=== PATIENT | female | born 1965 | race Caucasian/White ===

== ENCOUNTER 2017-06-17 23:53 | Emergency (ER) | payer BC, OTHER ==
--- NOTE | 2017-06-18 00:05 | EDM.PDOC ---
ED HPI GENERAL MEDICAL PROBLEM - General Chief Complaint: Upper Extremity Injury/Pain Stated Complaint: FALL VIA [place] Time Seen by Provider: 06/17/17 23:55 Source of Information: Reports: Patient, EMS History Limitations: Reports: No Limitations - History of Present Illness INITIAL COMMENTS - FREE TEXT/NARRATIVE: 51 yo female fell off a bar with injury to the left elbow. Has no numbness to that hand. EMS transported and gave fentanyl 100 mcg IV before arrival. No other areas of pain reported. Onset: Today Onset Date: 06/18/17 Onset Time: 23:00 Duration: Minutes:, Constant Location: Reports: Upper Extremity, Left Quality: Reports: Ache Severity: Moderate Improves with: Reports: Rest Worsens with: Reports: Movement Context: Reports: Trauma Associated Symptoms: Reports: No Other Symptoms Treatments [employer]: Reports: Other Medication(s) (fentanyl 100 mcg IV) Left Arm Pain Score (Numeric/FACES): 10 - Related Data Allergies Allergy/AdvReac Type Severity Reaction Status Date / Time amoxicillin Allergy Airway Verified 06/18/17 00:00 Tightness Home Meds: Home Meds Cyclobenzaprine HCl [Cyclobenzaprine HCl] 10 mg PO ASDIRECTED PRN 06/18/17 [ History] methylPREDNISolone [Medrol] 06/18/17 [History] Review of Systems - Review of Systems Review Of Systems: See Below Constitutional: Reports: No Symptoms Musculoskeletal: Reports: Arm Pain (left), Joint Pain (elbow, left). Denies: Shoulder Pain, Hand Pain, Leg Pain Skin: Reports: No Symptoms Neurological: Reports: No Symptoms ED EXAM, GENERAL - Physical Exam Exam: See Below Exam Limited By: No Limitations General Appearance: Alert, WD/WN, No Apparent Distress Eye Exam: Bilateral Eye: Normal Inspection Ears: Normal External Exam, Normal Canal, Hearing Grossly Normal Ear Exam: Bilateral Ear: Auricle Normal, Canal Normal Nose: Normal Inspection, Normal Mucosa Throat/Mouth: Normal Inspection, Normal Lips, Normal Teeth, Normal Oropharynx, Normal Voice, No Airway Compromise Head: Atraumatic, Normocephalic Neck: Normal Inspection Respiratory/Chest: No Respiratory Distress, Lungs Clear, Normal Breath Sounds Cardiovascular: Regular Rate, Rhythm Extremities: Arm Pain (L elbow with deformity), Limited Range of Motion. No: Normal Range of Motion, Joint Swelling, Redness Neurological: Alert, Oriented, CN II-XII Intact, Normal Cognition Psychiatric: Normal Affect, Normal Mood Skin Exam: Warm, Dry, Intact, Normal Color, No Rash Course - Vital Signs Last Recorded V/S: Last Vital Signs Temp 36.2 C 06/18/17 01:06 Pulse 76 06/18/17 01:06 Resp 14 06/18/17 01:06 BP 126/84 06/18/17 01:06 Pulse Ox 100 06/18/17 01:06 - Orders/Labs/Meds Orders: Active Orders 24 hr Category Date Time Status Elbow Min 3V Lt [CR] Stat Exams 06/18/17 00:04 Taken Elbow Min 3V Lt [CR] Stat Exams 06/18/17 01:17 Ordered Sodium Chloride 0.9% [Normal Saline] 1,000 ml Med 06/18/17 01:00 Active IV ASDIRECTED Medication Orders Sodium Chloride (Normal Saline) 1,000 mls @ 200 mls/hr IV ASDIRECTED JHOAN Last Admin: 06/18/17 01:05 Dose: 200 mls/hr Meds: Medications Generic Name Dose Route Start Last Admin Trade Name Freq PRN Reason Stop Dose Admin Sodium Chloride 1,000 mls @ 200 mls/hr 06/18/17 01:00 06/18/17 01:05 Normal Saline IV 200 mls/hr ASDIRECTED JHOAN Administration Discontinued Medications Generic Name Dose Route Start Last Admin Trade Name Freq PRN Reason Stop Dose Admin Hydromorphone HCl 1 mg 06/18/17 00:07 06/18/17 00:58 Dilaudid IVPUSH 06/18/17 00:08 1 mg ONETIME ONE Administration - Radiology Interpretation Free Text/Narrative:: L elbow L-alh-cljbrnvxbte of elbow, no fx's. L elbow X-ray(post-reduction)-satifactory reduction, no fx's. Posterior splint and sling applied. Departure - Departure Time of Disposition: 02:15 Disposition: Home, Self-Care 01 Condition: Fair Clinical Impression: Dislocation, elbow, posterior Qualifiers: Encounter type: initial encounter Laterality: left Qualified Code(s): S53.125A - Posterior dislocation of left ulnohumeral joint, initial encounter - Discharge Information Referrals: PCP,None [Primary Care Provider] - Forms: ED Department Discharge - My Orders Last 24 Hours: My Active Orders 06/18/17 00:04 Elbow Min 3V Lt [CR] Stat 06/18/17 01:00 Sodium Chloride 0.9% [Normal Saline] 1,000 ml IV ASDIRECTED 06/18/17 01:17 Elbow Min 3V Lt [CR] Stat - Assessment/Plan Last 24 Hours: My Active Orders 06/18/17 00:04 Elbow Min 3V Lt [CR] Stat 06/18/17 01:00 Sodium Chloride 0.9% [Normal Saline] 1,000 ml IV ASDIRECTED 06/18/17 01:17 Elbow Min 3V Lt [CR] Stat
[2017-06-18] MEDS ORDERED: HYDROmorphone 1 MG/ML Syringe IVPUSH ONE (00:07)
[2017-06-18] MEDS ORDERED: Sodium Chloride 0.9% 1,000 ML IV SCH (01:00)
[2017-06-18] MEDS ORDERED: Propofol 200 MG/20 ML SDV ONE (01:28)
--- NOTE | 2017-06-18 02:11 | ANES ---
DATE OF SERVICE: 06/18/2017 A 51-year-old lady in the emergency room with a dislocated left elbow. I was asked by the emergency physician to come in and provide sedation for closed reduction of the left elbow. This lady had been at a local bar eating and drinking, and according to her, dancing on the bar zohreh, she fell coming out of the establishment and dislocated her left elbow. She had been eating and drinking up until the time she did this. This happened at approximately 12:30 a.m. The procedure was explained to her in detail. All questions were answered. She had been given 100 mcg of fentanyl by the emergency services people bringing her to the ER and the ER gave her 1 mg of Dilaudid. She seems to be fairly sleepy. Her signed the consent. She was hooked up to all of the monitors, nasal oxygen, suction was prepared. She was given 70 mg of propofol intravenously, and after approximately 1 minute, the ER physician easily reduced her left elbow. X-rays confirm that the elbow was reduced. Within 10 minutes, she was responding to questions, easily breathing on her own. Vital signs remained stable throughout, tolerated the procedure well. Zack Merlos CRNA /[id number]
--- NOTE | 2017-06-18 10:18 | CR ---
Elbow Min 3V Lt HISTORY: Injury COMPARISON: None. Findings: There is dislocation of the left elbow. No fracture. Small effusion.
--- NOTE | 2017-06-18 10:20 | CR ---
Elbow Min 3V Lt HISTORY: Post reduction. COMPARISON: Earlier films today. FINDINGS: The dislocation has been reduced. Adjacent to the medial epicondyle there is a small bony d ensity measuring 1 mm x 6 mm in size could represent small chip fracture. This could be old finding i s well. Small joint effusion and soft tissue swelling.
== END 2017-06-18 02:25 | disposition home or self-care (01) ==
LOC: JP.ED 23:53
DX: S53.125A Posterior dislocation of left ulnohumeral joint, initial encounter (principal); Z88.1 Allergy status to other antibiotic agents; W17.89XA Other fall from one level to another, initial encounter
CPT/HCPCS: 24600; 73080; 99284; J1170; J2704; J7040